=== PATIENT | female | born 1980 | race Caucasian/White ===

== ENCOUNTER 2023-12-23 13:59 | Inpatient (IN) | payer OTHER, SELFPAY ==
[2023-12-23] VITALS (16 sets, daily range): BP systolic 89–149; BP diastolic 54–128
[2023-12-23 10:23] LABS: % Immature Granulocytes 0.1 % (0-0.5); % Lymphocytes 24.5 % (20.5-51.1); % Monocytes 8.1 % (1.7-9.3); % Neutrophils 63.3 % (42.2-75.2); Absolute Basophils 0.1 10^3/uL (0-0.2); Absolute Eosinophils 0.2 10^3/uL (0-0.7); Absolute Lymphocytes 1.8 10^3/uL (1.2-3.4); Absolute Monocytes 0.6 10^3/uL (0.1-0.6); Absolute Neutrophils 4.6 10^3/uL (1.4-6.5); Hematocrit 39.1 % (37.0-47.0); Hemoglobin 13.5 g/dL (12.0-16.0); Mean Corp Hgb Conc. 34.5 g/dL (33.0-37.0); Mean Corpuscular Volume 89.7 fL (81.0-99.0); Mean Platelet Volume 9.8 fL (7.4-10.4); Nucleated Red Blood Cells % 0 %; Platelet Count 329 10^3/uL (130-400); Red Blood Cell Count 4.36 10^6/uL (4.20-5.40); Red Cell Dist. Width 12.7 % (11.5-14.5); White Blood Cell Count 7.3 10^3/uL (4.8-10.8)
[2023-12-23 10:35] LABS: ALT (SGPT) 26 U/L (0-35); AST (SGOT) 39 U/L (14-36); Alkaline Phosphatase 68 U/L (38-126); Blood Urea Nitrogen 9 mg/dl (7-17); Calcium 9.4 mg/dl (8.4-10.2); Carbon Dioxide 24 mmol/L (22-30); Chloride 108 mmol/L (98-107); Glucose 100 mg/dl (70-99); Magnesium 1.9 mg/dl (1.6-2.3); Potassium 4.1 mmol/L (3.5-5.1); Sodium 140 mmol/L (135-145); Total Bilirubin 0.2 mg/dl (0.2-1.3); Total Protein 7.2 g/dl (6.3-8.2); eGFR > 60.00
[2023-12-23 10:37] LABS: HCG, Serum Qualitative Screen Negative
[2023-12-23] MEDS: CARDIZEM 10 MG IV (10:40)
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
[2023-12-23 11:12] LABS: TSH 0.72 uIU/ml (0.47-4.68)
--- NOTE | 2023-12-23 12:29 | HPS.HSE ---
Family Physician
<RICARDO Espino - Last Filed: 12/23/23 13:09>
-
Family Physician: * NONE
Chief Complaint
<RICRADO Espino - Last Filed: 12/23/23 13:09>
-
palpitaiton
History of Present Illness
43-year-old female with past medical history of paroxysmal atrial fibrillation, presenting to the emergency department for evaluation of palpitations that started around 8 AM and have been persistent since accompanied with a paresthesia-like
sensation to the left upper extremity. patient was diagnosed with atrial fib three years ago.patient tool metoprolol for a year, then she lost insurance and was not able to take medication. she had felt palpitation since then couple times that last
for around 3 to 5 minutes but resolved spontaneously. she has not followed up with cardiology since then as well. patient complained of dizziness, when leaning over. stated some chest pressure. patient also stated that can't take deep breath. denied
BUSTOS, fever, chills, chest congestion, cough. denied abdominal pain, n,v,d. denied dysuria or hematuria.
on arrival atrial fib with RVR. ordered Cardizem drip
Medical History
<RICARDO Espino - Last Filed: 12/23/23 13:09>
Past Medical History
Past Medical History: Reports Other
Additional Past Medical History:
atrial fib
Past Surgical History: Reports Cholecystectomy
Social History
Tobacco: Former Smoker
Alcohol: Occasional
Drug: None
Living: With Family
Employment: Employed
Family History
Family History: Not pertinent
Allergies / Home Medications
Allergies reflects when Allergies were last updated in [facility].
Home Medications with original date entered in [facility]
Allergy/Medication List:
Allergies
Allergy/AdvReac Type Severity Reaction Status Date / Time
pantoprazole sodium Allergy Itching Verified 12/23/23 10:09
[From Protonix]
Penicillins Allergy Rash Verified 12/23/23 10:09
Home Medications
cetirizine 10 mg tablet (Zyrtec) 10 mg PO DAILY 03/31/21
diltiazem HCl 120 mg capsule,extended release 24 hr 120 mg PO DAILY #30 caps 03/31/21
Review of Systems
<RICARDO Espino - Last Filed: 12/23/23 13:09>
-
Constitutional: Reports No Symptoms
EENT: Reports No Symptoms
Respiratory: Reports No Symptoms
Cardiac: Reports Palpitations and Other (chest pressure)
Abdomen/GI: Reports No Symptoms
: Reports No Symptoms
Musculoskeletal: Reports No Symptoms
Skin: Reports No Symptoms
Neurological: Reports Dizzy
Endocrine: Reports No Symptoms
Hematologic/Lymphatic: Reports No Symptoms
Psych: Reports No Symptoms
Physical Exam
<RICARDO Espino - Last Filed: 12/23/23 13:09>
Vital Signs
Vital Signs
Temp Pulse Resp BP Pulse Ox
97.2 F 102 24 104/64 97
12/23/23 09:22 12/23/23 11:45 12/23/23 11:30 12/23/23 12:00 12/23/23 12:00
Physical Exam
General: Well Developed, Well Nourished and No Apparent Distress
HEENT: NormoCephalic, Moist mucous membranes and Atraumatic
Respiratory: Clear
Cardiac: S1/S2, Irregular Rhythm and Tachycardia; No Murmur or Rub
GI: Soft, Non Tender, Non Distended and Normal Bowel Sounds; No Organomegaly
Rectal: Deferred by Provider
Musculoskeletal: No Clubbing, No Cyanosis and No Edema
Skin: No Rash
Neuro: AO x 3 and Nonfocal/grossly intact
Psych: Calm
Laboratory Results
<RICARDO Espino - Last Filed: 12/23/23 13:09>
-
12/23/23 10:16
12/23/23 10:16
Laboratory Results
Total Bilirubin 0.2 mg/dl (0.2-1.3) 12/23/23 10:16
AST 39 U/L (14-36) H 12/23/23 10:16
ALT 26 U/L (0-35) 12/23/23 10:16
Alkaline Phosphatase 68 U/L (38-126) 12/23/23 10:16
Data Reviewed
<RICARDO Espino - Last Filed: 12/23/23 13:09>
-
Lab Data: Labs Reviewed by me
Impression/Plan
<RICARDO Espino - Last Filed: 12/23/23 13:09>
-
#atrial fib with RVR
-EKG with atrial fib with RVR
-Cardizem drip
-obtain ECHO
-cardiology consulted
#DVT prophylaxis
-Lovenox
#CODE status
-full code
<Nader Matute MD - Last Filed: 12/23/23 14:44>
-
I saw and examined the patient.
The TRANSCRIPT EVALUATOR or PA's note was reviewed and I agree with the note.
Comment:
CVS: S1-S2 irregular and Tachycardic
Chest: CTA B/L
Abdomen: Soft, NT / Bowel sounds present
Extremities: No edema, normal pulses
PLANT PROPAGATOR: Non focal exam
#Atrial fib with RVR
-No precipitating factors
-Check troponin to rule out ischemia
-EKG with atrial fib with RVR
-Cardizem drip to be continued to keep heart rate less than 100
-[id number] 2-score 0
-If patient going for cardioversion may need anticoagulation otherwise not
-TSH is normal
-obtain ECHO
-cardiology consulted
#DVT prophylaxis
-Lovenox
#CODE status
-full code
Discussed with HONEY PRODUCER
Discussed with patient's parents at bedside
[2023-12-23] MEDS: CARDIZEM 125 IV (12:43)
[2023-12-23 13:52] LABS: Troponin I 0.057 ng/ml
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
[2023-12-23] MEDS: HEPARIN 25000 UNITS/250 ML IV (15:09)
[2023-12-23 15:28] LABS: Hematocrit 39.8 % (37.0-47.0); Hemoglobin 13.7 g/dL (12.0-16.0); Mean Corp Hgb Conc. 34.4 g/dL (33.0-37.0); Mean Corpuscular Hgb 30.9 pg (27.0-31.0); Mean Corpuscular Volume 89.6 fL (81.0-99.0); Mean Platelet Volume 9.8 fL (7.4-10.4); Platelet Count 334 10^3/uL (130-400); Red Blood Cell Count 4.44 10^6/uL (4.20-5.40); Red Cell Dist. Width 12.8 % (11.5-14.5); White Blood Cell Count 7.8 10^3/uL (4.8-10.8)
--- NOTE | 2023-12-23 17:56 | PTCARENOTE ---
Rec'd pt from ED. Pt afib on monitor, HR 75-100. 135-145 with ambulation and activity. Pt on Cardizem at 10mg/hr. Heparin at 850 units/hr. Pt denies CP, denies sob. Pt ambulated to bathroom and tolerated well. See worklist for VS/I and O and
assessments.
[2023-12-23 22:55] LABS: APTT 46.5 Sec (23.4-35.0)
--- NOTE | 2023-12-23 23:44 | PTCARENOTE ---
Denies any complaints of pain or discomfort. Cardizem infusing at 5 mg/hr, Heparin infusing at 1050 units/hr. Remains in a-fib on the monitor in the 60-80's. Aware she is NPO after midnight.
[2023-12-24] MEDS: CARDIZEM 125 IV (01:06)
[2023-12-24 05:34] VITALS: BP 87/60
[2023-12-24 05:35] VITALS: BP 87/60
[2023-12-24 06:13] LABS: APTT 80.1 Sec (23.4-35.0)
[2023-12-24 06:26] LABS: Hematocrit 38.3 % (37.0-47.0); Mean Corp Hgb Conc. 33.9 g/dL (33.0-37.0); Mean Corpuscular Hgb 31.1 pg (27.0-31.0); Mean Corpuscular Volume 91.6 fL (81.0-99.0); Mean Platelet Volume 10.3 fL (7.4-10.4); Platelet Count 341 10^3/uL (130-400); Red Blood Cell Count 4.18 10^6/uL (4.20-5.40); Red Cell Dist. Width 12.8 % (11.5-14.5); White Blood Cell Count 6.6 10^3/uL (4.8-10.8)
--- NOTE | 2023-12-24 06:40 | PTCARENOTE ---
Asymptomatic with her b/p at 87/60 at 0530.
[2023-12-24 07:05] LABS: Blood Urea Nitrogen 10 mg/dl (7-17); Calcium 9.1 mg/dl (8.4-10.2); Carbon Dioxide 22 mmol/L (22-30); Chloride 108 mmol/L (98-107); Estimated Creatinine Clearance 112 ml/min; Glucose 93 mg/dl (70-99); HDL Cholesterol 67 mg/dl; LDL Cholesterol, Calculated 71 mg/dl; Sodium 138 mmol/L (135-145); Total Cholesterol 157 mg/dl (50-199); Triglyceride 98 mg/dl (10-149); Very Low Density Lipoprotein 19 mg/dl (0-30); eGFR > 60.00
[2023-12-24 08:08] VITALS: BP 94/63
--- NOTE | 2023-12-24 11:31 | ITS.CL.CARDI ---
Placement Assistant - Cardioversion
Cardioversion
Procedure Report:
Procedure: TIANA-guided electrical cardioversion
Pre-operative diagnosis: Persistent atrial fibrillation
Post-operative diagnosis: Persistent atrial fibrillation status post DC cardioversion to sinus rhythm
Anesthesia: MAC
Attending Physician: Nash Mendoza MD
Procedure Description: The patient was brought to the electrophysiology laboratory in the fasting state. Informed consent was obtained from the patient prior to the start of the procedure. Adherence to anticoagulation was confirmed. Electrodes were
placed on the patient and connected to an external defibrillator. Monitoring of blood pressure, ECG tracings, and pulse oximetry was initiated. The pads were applied to the patient in the anterior and posterior positions. The patient was sedated by
the anesthesiologist. A TIANA (reported separately) was performed prior to the cardioversion. No left atrial or left atrial appendage thrombus was seen. After the TIANA probe was removed, a 200 joule biphasic synchronized shock was delivered to the
patient under MAC anesthesia. Sinus rhythm was successfully restored. The patient recovered uneventfully from MAC anesthesia. There were no immediate post-procedure complications. The patient left the lab in good condition. The attending physician
was present throughout the entire procedure.
Impression: Successful TIANA-guided direct current cardioversion with adventism of sinus rhythm after one 200 joule biphasic synchronized shock.
[2023-12-24 12:22] VITALS: BP 102/72
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
--- NOTE | 2023-12-24 12:45 | PTCARENOTE ---
Rec'd Pt post TIANA/CV, A,A+O, no complaints. VSS. Pt is in SR on monitor.
--- NOTE | 2023-12-24 13:18 | CM ---
Priced Eliquis thru patient's insurance. Estimated cost of Eliquis is $3/month. TT to [employer] to update.
[2023-12-24 13:40] LABS: APTT 49.9 Sec (23.4-35.0)
--- NOTE | 2023-12-24 13:44 | W.PN.HOSP.TC ---
Addendum entered and electronically signed by Nader Matute MD 12/24/23 13:54:
Elevated troponin-nonischemic myocardial injury.
Original Note:
Today's Communication/Plan
-
Discharge today on anticoagulation
Assessment / Plan
Assessment / Plan
Status post cardioversion and feels well
Echo 12/23/2023-hyperdynamic LV systolic function. EF 75%. Concentric LVH. Trace TR.
CVS: S1-S2 normal
Chest: CTA B/L
Abdomen: Soft, NT / Bowel sounds present
Extremities: No edema, normal pulses
ETCHER MACHINE: Non focal exam
#atrial fib with RVR
-Status post successful cardioversion today
-Echo as above
-Cardiology contacting [facility] cardiology where patient sounds are seen to see if they have HOCM.
-Plan is to continue with anticoagulation until this is figured out
-She needs genetic testing as outpatient
#DVT prophylaxis
-Lovenox
#CODE status
-full code
Discussed with nursing
Discussed with cardiology
Anticipated Discharge: Today
Subjective/Interval History
-
Date of Service: December 24, 2023
Objective Data
-
Labs:
Laboratory Results
12/24/23 12/24/23
05:40 13:21
WBC 6.6
Hgb 13.0
Hct 38.3
Plt Count 341
APTT 80.1 H 49.9 H
Sodium 138
Potassium 4.0
Chloride 108 H
Carbon Dioxide 22
BUN 10
Creatinine 0.5 L
Glucose 93
Calcium 9.1
Vital Signs:
Vital Signs
Temp Pulse Resp BP Pulse Ox
97.6 F 72 16 87/60 98
12/24/23 08:06 12/24/23 08:06 12/24/23 08:06 12/24/23 05:35 12/24/23 08:06
I&O
12/23/23 12/24/23 12/25/23
06:59 06:59 06:59
Intake Total 1305.5 / 1305.5
Balance 1305.5 / 1305.5
--- NOTE | 2023-12-24 13:54 | W.DS.TRANS ---
Addendum entered and electronically signed by Nader Matute MD 12/24/23 16:23:
Dictation- [id number]
Original Note:
DC Summary - Winder Contort Operator
-
Discharge Instructions:
Sleep Apnea Risk Low
Discharge Diagnosis/Procedures Atrial Fibrillation
Diet As tolerated
Activity As tolerated
Driving Restrictions As prior to admission
Instructions:
Stand-Alone Forms:
Changes to Home Medications: Yes
Discharge Medications:
DC Medications w/original date entered in [employer]
cetirizine 10 mg tablet (Zyrtec) 10 mg PO DAILY Allergies 03/31/21
apixaban 5 mg tablet (Eliquis) 5 mg PO BID Blood clot prevention/tx #60 tabs 12/24/23
diltiazem HCl 120 mg capsule,extended release 24 hr 120 mg PO DAILY Arrhythmia #30 caps 12/24/23
Home Medication Changes
new
apixaban 5 mg tablet (Eliquis) 5 mg PO BID Blood clot prevention/tx #60 tabs 12/24/23
diltiazem HCl 120 mg capsule,extended release 24 hr 120 mg PO DAILY Arrhythmia #30 caps 12/24/23
Pending Results: No
[2023-12-24] MEDS: CARDIZEM CD 120 MG PO (14:24)
[2023-12-24 15:01] VITALS: BP 101/62
--- NOTE | 2023-12-24 15:26 | CM ---
CM following for DC planning needs.
Met w/ patient at bedside to complete initial assessment.
Pt. is completely indep. at baseline.
Has Rx plan and uses [facility] in [place] for prescription needs.
Reviewed estimated cost of Eliquis; placed 2 coupons in chart in the event of any issues.
Anticipated DC plan is for home, no needs.
[2023-12-24] MEDS: ELIQUIS 5 MG PO (17:06)
== END 2023-12-24 18:20 | disposition home or self-care (01) | DRG 309 ==
LOC: IVU 13:59
PROVIDERS: Internal Medicine Cardiovascular Disease; Physician Assistant Medical; Registered Nurse; ADMITTING PHYSICIAN Hospitalist; EMERGENCY PHYSICIAN Emergency Medicine; OTHER PHYSICIAN Internal Medicine Interventional Cardiology
PROC: B24BZZ4 Ultrasonography of Heart with Aorta, Transesophageal (ICD-10-PCS; 2023-12-24)
PROC: 5A2204Z Restoration of Cardiac Rhythm, Single (ICD-10-PCS; 2023-12-24)
DX: I48.19 Other persistent atrial fibrillation (principal); I5A Non-ischemic myocardial injury (non-traumatic); Z87.891 Personal history of nicotine dependence
CPT/HCPCS: 80048; 80053; 80061; 83735; 84443; 84484; 84703; 85025; 85027; 85730; 92960; 93005; 93306; 93312; 93320; 93325; 96374; 96376; 99285

== ENCOUNTER → 2024-08-18 08:34 | Outpatient (REF) | payer OTHER, SELFPAY | LOC: PAVMRI 08:34 | PROVIDERS: ATTENDING PHYSICIAN Internal Medicine Cardiovascular Disease; FAMILY PHYSICIAN Nurse Practitioner Family | DX: I48.0 Paroxysmal atrial fibrillation (principal); I42.2 Other hypertrophic cardiomyopathy | CPT/HCPCS: 75561; 75565; A9585 ==